=== PATIENT | male | born 1960 | race Caucasian/White ===

== ENCOUNTER → 2016-07-04 | Outpatient (CLI) | payer MEDICARE, OTHER ==
[~2016-07-04] MED LIST: MORPHINE SULFAT30 M4 PO; NEURONTIN 400400 MG PO; OXYCODONE-ACET1 EACH PO; PROAIR HFA8.5 GM INH; SPIRIVA RESPIMAT4 GM INH; SYMBICORT 16010.2 GM INH; VENTOLIN/PROVE0.5 ML INH
== END ==
LOC: RAD 08:03
DX: J40 Bronchitis, not specified as acute or chronic (principal); M25.559 Pain in unspecified hip; M46.1 Sacroiliitis, not elsewhere classified; M51.26 Other intervertebral disc displacement, lumbar region; J45.909 Unspecified asthma, uncomplicated; N52.9 Male erectile dysfunction, unspecified; M54.5 Low back pain; M19.90 Unspecified osteoarthritis, unspecified site; J44.9 Chronic obstructive pulmonary disease, unspecified
CPT/HCPCS: 71020

== ENCOUNTER → 2016-07-18 | Outpatient (CLI) | payer MEDICARE | LOC: LAB 11:08 | DX: J44.9 Chronic obstructive pulmonary disease, unspecified (principal) | CPT/HCPCS: 36415; 82785 ==

== ENCOUNTER → 2016-08-07 | Outpatient (CLI) | payer MEDICARE, OTHER | LOC: KOH-I 10:15 | DX: R86.1 Abnormal level of hormones in specimens from male genital organs (principal); M46.1 Sacroiliitis, not elsewhere classified; M51.26 Other intervertebral disc displacement, lumbar region; Z98.1 Arthrodesis status; J45.909 Unspecified asthma, uncomplicated; J44.9 Chronic obstructive pulmonary disease, unspecified; J40 Bronchitis, not specified as acute or chronic; M19.90 Unspecified osteoarthritis, unspecified site; M54.5 Low back pain; E29.1 Testicular hypofunction; G47.30 Sleep apnea, unspecified; R09.81 Nasal congestion | CPT/HCPCS: 70551 ==

== ENCOUNTER → 2020-04-12 | Outpatient (CLI) | payer MEDICARE, OTHER ==
[~2020-04-12] MED LIST changes: +IBUPROFEN600 MG PO
== END ==
LOC: KOH-I 13:59
DX: Z12.2 Encounter for screening for malignant neoplasm of respiratory organs (principal); F17.210 Nicotine dependence, cigarettes, uncomplicated
CPT/HCPCS: 71271

== ENCOUNTER 2020-12-21 18:49 | Emergency (ER) | payer MEDICARE, OTHER ==
[2020-12-21] MEDS ORDERED: SILVADENE CREAM20 GM TOP (20:02)
== END 2020-12-21 20:18 | disposition home or self-care (01) ==
LOC: ER1 18:49
DX: T22.211A Burn of second degree of right forearm, initial encounter (principal); J44.9 Chronic obstructive pulmonary disease, unspecified; Z79.899 Other long term (current) drug therapy; X08.8XXA Exposure to other specified smoke, fire and flames, initial encounter; Y92.009 Unspecified place in unspecified non-institutional (private) residence as the place of occurrence of the external cause
CPT/HCPCS: 93005; 96372; 99283; J2270; J2405

== ENCOUNTER → 2021-01-23 | Outpatient (CLI) | payer MEDICARE, OTHER ==
[~2021-01-23] MED LIST changes: +SILVADENE CREAM20 GM TOP
== END ==
LOC: RAD 08:00
DX: R13.19 Other dysphagia (principal); R93.3 Abnormal findings on diagnostic imaging of other parts of digestive tract
CPT/HCPCS: 74221

== ENCOUNTER → 2021-02-15 | Day surgery (SDC) | payer MEDICARE, OTHER ==
[~2021-02-15] MED LIST changes: +AMITRIPTYLINE H10 MG PO; +MELOXICAM15 MG PO; +NITROSTAT 0.40.4 MG SL; +PANTOPRAZOLE PO; +TIZANIDINE HCL4 M1 PO
== END | disposition home or self-care (01) ==
LOC: OR 06:43
PROVIDERS: Internal Medicine Gastroenterology
PROC: 0D738ZZ Dilation of Lower Esophagus, Via Natural or Artificial Opening Endoscopic (ICD-10-PCS; 2021-02-15)
PROC: 0DB68ZX Excision of Stomach, Via Natural or Artificial Opening Endoscopic, Diagnostic (ICD-10-PCS; principal; 2021-02-15 11:00)
DX: K22.2 Esophageal obstruction (principal); K25.7 Chronic gastric ulcer without hemorrhage or perforation; K21.9 Gastro-esophageal reflux disease without esophagitis; J44.9 Chronic obstructive pulmonary disease, unspecified; F17.210 Nicotine dependence, cigarettes, uncomplicated; E66.3 Overweight; Z68.25 Body mass index [BMI] 25.0-25.9, adult; Z20.822 Contact with and (suspected) exposure to COVID-19; Z79.891 Long term (current) use of opiate analgesic; Z79.1 Long term (current) use of non-steroidal anti-inflammatories (NSAID); Z79.899 Other long term (current) drug therapy; Z90.49 Acquired absence of other specified parts of digestive tract
CPT/HCPCS: J2704; J7040

== ENCOUNTER → 2021-06-06 | Day surgery (SDC) | payer MEDICARE, OTHER ==
[~2021-06-06] MED LIST changes: +BREZTRI AEROS10.7 GM INH; +FOLIC ACID0.8 MG PO
== END | disposition home or self-care (01) ==
LOC: OR 08:09
PROVIDERS: Internal Medicine Gastroenterology
PROC: 0DJ08ZZ Inspection of Upper Intestinal Tract, Via Natural or Artificial Opening Endoscopic (ICD-10-PCS; principal; 2021-06-06 12:15)
DX: R13.10 Dysphagia, unspecified (principal); Z20.822 Contact with and (suspected) exposure to COVID-19; J44.9 Chronic obstructive pulmonary disease, unspecified; K21.9 Gastro-esophageal reflux disease without esophagitis; F17.210 Nicotine dependence, cigarettes, uncomplicated; K25.9 Gastric ulcer, unspecified as acute or chronic, without hemorrhage or perforation; G89.29 Other chronic pain; M54.9 Dorsalgia, unspecified; Z79.899 Other long term (current) drug therapy
CPT/HCPCS: J2001; J2704; J7040